=== PATIENT | male | born 1990 | race Caucasian/White ===

== ENCOUNTER 2017-04-19 02:31 | Emergency (ER) | payer OTHER ==
[~2017-04-19] VITALS: Ht 177.8 cm; Wt 84.0 kg
[~2017-04-19 02:31] MED LIST: CEPH-571 PO; HYDR-569 PO
[2017-04-19] MEDS ORDERED: clindamycin 150mg capsule PO ONE (02:55)
[2017-04-19] MEDS ORDERED: CLIN-80 PO (03:01)
[2017-04-19 03:13] VITALS: BP 122/87
== END 2017-04-19 03:17 | disposition home or self-care (01) ==
LOC: ER 02:32
DX: L03.115 Cellulitis of right lower limb (principal); F17.200 Nicotine dependence, unspecified, uncomplicated; F19.10 Other psychoactive substance abuse, uncomplicated
CPT/HCPCS: 99283

== ENCOUNTER 2019-02-09 14:32 | Emergency (ER) | payer MEDICAID ==
[~2019-02-09] VITALS: Ht 180.3 cm; Wt 84.1 kg
[~2019-02-09 14:32] MED LIST changes: +HYDR-4383 PO; -HYDR-569 PO
[2019-02-09] MEDS ORDERED: AMOX500C2 PO (15:01)
[2019-02-09] MEDS ORDERED: IBUP-1984 PO (15:01)
[2019-02-09] MEDS ORDERED: acetaminophen 325mg tablet PO ONE (15:05)
[2019-02-09 15:22] VITALS: BP 120/71
== END 2019-02-09 15:26 | disposition home or self-care (01) ==
LOC: ER 14:32
DX: H66.91 Otitis media, unspecified, right ear (principal); F15.90 Other stimulant use, unspecified, uncomplicated; F17.200 Nicotine dependence, unspecified, uncomplicated
CPT/HCPCS: 99284

== ENCOUNTER 2019-09-20 11:29 | Emergency (ER) | payer MEDICAID ==
[~2019-09-20] VITALS: Ht 177.8 cm; Wt 79.5 kg
[2019-09-20] MEDS ORDERED: IBUP-1984 PO (12:07)
[2019-09-20] MEDS ORDERED: PENI500T2 PO (12:07)
[2019-09-20 12:16] VITALS: BP 119/89
== END 2019-09-20 12:15 | disposition home or self-care (01) ==
LOC: ER 11:29
DX: K04.7 Periapical abscess without sinus (principal); R60.9 Edema, unspecified; R51 Headache; F15.90 Other stimulant use, unspecified, uncomplicated; Z79.2 Long term (current) use of antibiotics; Z79.899 Other long term (current) drug therapy
CPT/HCPCS: 99283

== ENCOUNTER 2020-07-22 18:51 | Emergency (ER) | payer MEDICAID ==
[~2020-07-22] VITALS: Ht 177.8 cm; Wt 75.0 kg
[2020-07-22 18:59] VITALS: BP 168/88
[2020-07-22] MEDS ORDERED: AMOX-117 PO (19:15)
[2020-07-22] MEDS ORDERED: IBUP-1984 PO (19:15)
[2020-07-22] MEDS ORDERED: amox tr/potassium clavulanate 875/125mg TAB PO ONE (19:20)
[2020-07-22] MEDS ORDERED: ibuprofen tablet 400 MG TABLET PO ONE (19:20)
== END 2020-07-22 19:31 | disposition home or self-care (01) ==
LOC: ER 18:52
DX: K04.7 Periapical abscess without sinus (principal); F15.90 Other stimulant use, unspecified, uncomplicated; Z79.2 Long term (current) use of antibiotics; Z79.899 Other long term (current) drug therapy
CPT/HCPCS: 99283